=== PATIENT | male | born 1980 ===

== ENCOUNTER 2020-03-27 01:45 | Emergency (ER) | payer SELFPAY ==
[2020-03-27 01:53] VITALS: BP 112/70
== END 2020-03-27 05:47 ==
LOC: ED 01:45
DX: M54.9 Dorsalgia, unspecified (principal); Z53.21 Procedure and treatment not carried out due to patient leaving prior to being seen by health care provider

== ENCOUNTER 2021-06-20 19:53 | Observation (INO) | payer OTHER ==
[2021-06-20] MEDS ORDERED: NITROGLYCERIN 2% OINT 1 GM TP ONE (20:24)
[2021-06-20] MEDS ORDERED: ONDANSETRON 4 MG/2 ML INJ IV ONE (20:24)
[2021-06-20] MEDS ORDERED: LORazepam 1 MG TAB PO ONE (20:24)
[2021-06-20] MEDS ORDERED: MORPHINE 4 MG/1 ML INJ IV ONE (20:24)
[2021-06-20] MEDS: ASPIRIN 325 MG TAB PO ONE ×2 (20:34→20:45)
--- NOTE | 2021-06-20 20:34 | Emergency Department Report ---
HPI - General Chief Complaint: Chest Pain Time Seen by Provider: 06/20/21 20:15 - HPI HPI: Room 2 The patient is a 41-year-old male present with a chief complaint of chest pain. Patient states since yesterday he has had a constant sharp pain in his left chest. Patient denies shortness of breath, nausea/vomiting or diaphoresis with this pain. Patient gives his pain a score of 2/10. Patient states he had an ID at [facility] approximately 2 weeks ago which required 2 cardiac stents being placed. Patient does not remember the name of his medication but states he has been compliant with all meds prescribed after his ID. ED Past Medical Hx - Past Medical History Hx Hypertension: Yes Hx Heart Attack/AMI: Yes (May 2021. 2 cardiac stents. [facility]) Hx Psychiatric Treatment: Yes (Anxiety) - Surgical History Hx Coronary Stent: Yes (X2 (May 2021)) Additional Surgical History: RT ARM SURGERY 2010 - Family History Family history: no significant - Social History Smoking Status: Former Smoker (None x1 year) Substance Use Type: None (Denies illicit drug use) - Medications Home Medications: Home Medications Medication Instructions Recorded Confirmed Last Taken Type Diphenoxylate HCl/Atropine 2 each PO Q6HRT #14 tablet 02/27/14 Unknown Rx [Lomotil 2.5-0.025 mg Tablet] ED Review of Systems ROS: Stated complaint: CHEST PAIN Other details as noted in HPI Constitutional: denies: diaphoresis Eyes: denies: eye pain ENT: denies: throat pain Respiratory: denies: shortness of breath Cardiovascular: chest pain Endocrine: no symptoms reported Gastrointestinal: denies: nausea, vomiting Genitourinary: denies: dysuria Musculoskeletal: denies: back pain Neurological: denies: headache Physical Exam - Physical Exam Vital Signs: Vital Signs 06/20/21 20:07 Pulse Rate 93 H Blood Pressure 170/94 O2 Sat by Pulse 97 Oximetry Physical Exam: GENERAL: The patient is well-developed well-nourished male standing in room not appearing to be in acute distress. [] HEENT: Normocephalic. Atraumatic. Extraocular motions are intact. Patient has moist mucous membranes. NECK: Supple. Trachea midline CHEST/LUNGS: Clear to auscultation. There is no respiratory distress noted. HEART/CARDIOVASCULAR: Regular. There is no tachycardia. There is no gallop rub or murmur. ABDOMEN: Abdomen is soft, nontender. Patient has normal bowel sounds. There is no abdominal distention. SKIN: There is no rash. There is no edema. There is no diaphoresis. NEURO: The patient is awake, alert, and oriented. The patient is cooperative. The patient has no focal neurologic deficits. The patient has normal speech and gait. GCS 15 MUSCULOSKELETAL: There is no evidence of acute injury. ED Course Vital Signs 06/20/21 20:07 Pulse Rate 93 H Blood Pressure 170/94 O2 Sat by Pulse 97 Oximetry - Consultations Consultation #1: 06/20/21 21:23 Cardiology paged 06/20/21 21:27 Case discussed with electrophysiologist Dr. Sams- recommends patient be admitted for observation ED Medical Decision Making - Lab Data Result diagrams: 06/20/21 20:23 06/20/21 20:23 Laboratory Tests 06/20/21 06/20/21 06/20/21 20:23 20:23 20:25 WBC 10.3 RBC 5.28 H Hgb 16.0 H Hct 45.7 H MCV 87 MCH 30 MCHC 35 H RDW 14.4 Plt Count 207 Lymph % (Auto) 36.0 H Harmon % (Auto) 6.2 Eos % (Auto) 4.4 H Baso % (Auto) 0.4 Lymph # (Auto) 3.7 Harmon # (Auto) 0.6 Eos # (Auto) 0.5 H Baso # (Auto) 0.0 Seg Neutrophils % 53.0 Seg Neutrophils # 5.5 PT INR Sodium 141 Potassium 4.0 Chloride 104.0 Carbon Dioxide 21 L Anion Gap 20 BUN 16 Creatinine 1.2 Estimated GFR > 60 BUN/Creatinine Ratio 13 Glucose 100 Calcium 9.8 Total Bilirubin 0.30 AST 42 H ALT 40 Alkaline Phosphatase 67 Total Creatine Kinase 1059 H CK-MB (CK-2) 5.5 H CK-MB (CK-2) Rel Index 0.5 Troponin T < 0.010 Total Protein 7.8 Albumin 4.4 Albumin/Globulin Ratio 1.3 06/20/21 20:25 WBC RBC Hgb Hct MCV MCH MCHC RDW Plt Count Lymph % (Auto) Harmon % (Auto) Eos % (Auto) Baso % (Auto) Lymph # (Auto) Harmon # (Auto) Eos # (Auto) Baso # (Auto) Seg Neutrophils % Seg Neutrophils # PT 13.1 INR 0.90 Sodium Potassium Chloride Carbon Dioxide Anion Gap BUN Creatinine Estimated GFR BUN/Creatinine Ratio Glucose Calcium Total Bilirubin AST ALT Alkaline Phosphatase Total Creatine Kinase CK-MB (CK-2) CK-MB (CK-2) Rel Index Troponin T Total Protein Albumin Albumin/Globulin Ratio - EKG Data -: EKG Interpreted by Me EKG shows normal: sinus rhythm, axis Rate: normal (91 bpm) - EKG Data When compared to previous EKG there are: previous EKG unavailable Interpretation: nonspecific ST-T wave haliee (T wave inversion in lead III) - Radiology Data Radiology results: report reviewed (Chest x-ray), image reviewed (Chest x-ray) interpreted by me: Chest x-ray-no definite focal infiltrates, no pneumothorax [facility] [address] [place] [address] XRay Report Signed Patient: NICOLA BECKFORD MR#: [id number] : 1980 Acct:[id number] Age/Sex: 41 / M ADM Date: 06/20/21 Loc: ED Attending Dr: Ordering Physician: AMELIA LAMB MD Date of Service: 06/20/21 Procedure(s): XR chest routine 2V Accession Number(s): [id number] cc: AMELIA LAMB MD Fluoro Time In Minutes: CHEST 2 VIEWS INDICATION / CLINICAL INFORMATION: CHEST PAIN. COMPARISON: None available. FINDINGS: SUPPORT DEVICES: None. HEART / MEDIASTINUM: No significant abnormality. LUNGS / PLEURA: A calcified granuloma is seen along the right middle lobe. The lungs are otherwise clear. No significant pleural effusion. No pneumothorax. ADDITIONAL FINDINGS: No significant additional findings. IMPRESSION: 1. No acute abnormality of the chest. Signer Name: Lenin Olvera MD Signed: 06/20/2021 9:11 PM Workstation Name: [id number] Transcribed By: DRE Dictated By: Lenin Olvera MD Electronically Authenticated By: Lenin Olvera MD Signed Date/Time: 06/20/212110 DD/ 10 TD/TT: - Differential Diagnosis Anxiety, ACS, Tyra's syndrome Critical care attestation.: If time is entered above; I have spent that time in minutes in the direct care of this critically ill patient, excluding procedure time. ED Disposition Clinical Impression: Chest pain Disposition: 09 ADMITTED INPATIENT Is pt being admited?: Yes Does the pt Need Aspirin: Yes Condition: Fair Instructions: Nonspecific Chest Pain, Adult Time of Disposition: 21:31 (Hospitalist called (Dr. Louis)) Heart Score - HEART Score History: Moderately suspicious EKG: Non-specific Age: < 45 Risk factors: 1-2 risk factors Troponin: < normal limit HEART Score: 3 - EKG Read Time Time EKG Completed: 19:57 EKG Read Time: 20:01
[2021-06-20 20:44] LABS: Basophils % (Auto) 0.4 % (0.0-1.8); Eosinophils # (Auto) 0.5 K/mm3 (0.0-0.4); Eosinophils % (Auto) 4.4 % (0.0-4.3); Hematocrit 45.7 % (35.5-45.6); Lymphocytes # (Auto) 3.7 K/mm3 (1.2-5.4); Mean Corpuscular HGB Conc 35 % (32-34); Mean Corpuscular Volume 87 fl (84-94); Monocytes # (Auto) 0.6 K/mm3 (0.0-0.8); Monocytes % (Auto) 6.2 % (0.0-7.3); Platelet Count 207 K/mm3 (140-440); Red Blood Count 5.28 M/mm3 (3.65-5.03); Red Cell Distribution Width 14.4 % (13.2-15.2)
[2021-06-20 20:54] LABS: INR 0.9 (0.87-1.13)
[2021-06-20 21:04] LABS: Creatine Kinase MB 5.5 ng/mL (0.0-4.0)
[2021-06-20 21:06] LABS: Alanine Aminotransferase 40 units/L (7-56); Albumin 4.4 g/dL (3.9-5); BUN/Creatinine Ratio 13; Blood Urea Nitrogen 16 mg/dL (9-20); Calcium 9.8 mg/dL (8.4-10.2); Hemolysis Index 22
--- NOTE | 2021-06-20 21:16 | XRay Report ---
CHEST 2 VIEWS INDICATION / CLINICAL INFORMATION: CHEST PAIN. COMPARISON: None available. FINDINGS: SUPPORT DEVICES: None. HEART / MEDIASTINUM: No significant abnormality. LUNGS / PLEURA: A calcified granuloma is seen along the right middle lobe. The lungs are otherwise cl ear. No significant pleural effusion. No pneumothorax. ADDITIONAL FINDINGS: No significant additional findings. IMPRESSION: 1. No acute abnormality of the chest. Signer Name: Lenin Olvera MD Signed: 06/20/2021 9:11 PM Workstation Name: [id number]
[2021-06-20] MEDS ORDERED: ACETAMINOPHEN 325 MG TAB PO PRN (21:50)
[2021-06-20] MEDS ORDERED: traMADol 50 MG TAB PO PRN (21:50)
[2021-06-20] MEDS ORDERED: MORPHINE 2 MG/1 ML INJ IV PRN (21:50)
[2021-06-20] MEDS ORDERED: NITROGLYCERIN 0.4 MG TAB SUBL SL PRN (21:50)
--- NOTE | 2021-06-20 21:56 | History and Physical Report ---
History of Present Illness Date of examination: 06/20/21 Date of admission: 06/20/21 Chief complaint: Chest pain History of present illness: 41-year-old male with history of hypertension and CA status post to a stent was brought to the hospital because of chest pain. Patient complained of constant sharp chest pain 2/10 in his left chest. Patient denies shortness of breath, nausea/vomiting or diaphoresis with this pain. Patient states he had an CA at [facility] approximately 2 weeks ago which required 2 cardiac stents being placed. Patient does not remember the name of his medication but states he has been compliant with all meds prescribed after his CA. In the emergency room initial cardiac enzyme is negative. Subsequently Case discussed with cardiology who recommended to admit the patient and cardiology will see the patient in the morning Past History Past Medical History: acute CA, hypertension, other (Anxiety) Past Surgical History: PTCA, Other (RT ARM SURGERY 2010) Social history: other (Former tobacco abuser) Family history: no significant family history Medications and Allergies Allergies Allergy/AdvReac Type Severity Reaction Status Date / Time No Known Allergies Allergy Verified 02/27/14 04:22 Home Medications Medication Instructions Recorded Confirmed Last Taken Type Diphenoxylate HCl/Atropine 2 each PO Q6HRT #14 tablet 02/27/14 Unknown Rx [Lomotil 2.5-0.025 mg Tablet] Review of Systems Cardiovascular: chest pain, shortness of breath Exam - Constitutional Vitals: Temp Pulse Resp BP Pulse Ox 89 139/88 97 06/20/21 20:30 06/20/21 20:30 06/20/21 20:07 General appearance: Present: no acute distress, well-nourished - EENT Eyes: Present: PERRL ENT: hearing intact, clear oral mucosa - Neck Neck: Present: supple, normal ROM - Respiratory Respiratory effort: normal Respiratory: bilateral: diminished - Cardiovascular Heart Sounds: Present: S1 & S2. Absent: rub, click - Extremities Extremities: pulses symmetrical, No edema Peripheral Pulses: within normal limits - Abdominal General gastrointestinal: Present: soft, non-tender, non-distended, normal bowel sounds Male genitourinary: Present: normal - Integumentary Integumentary: Present: clear, warm, dry - Musculoskeletal Musculoskeletal: gait normal, strength equal bilaterally - Psychiatric Psychiatric: appropriate mood/affect, intact judgment & insight - Neurologic Neurologic: CNII-XII intact, moves all extremities HEART Score - HEART Score EKG: Non-specific Age: < 45 Risk factors: 1-2 risk factors Troponin: Troponin T < 0.010 ng/mL (0.00-0.029) 06/20/21 20: Troponin: < normal limit Results - Labs CBC & Chem 7: 06/20/21 20:23 06/20/21 20: Labs: Laboratory Last Values WBC 10.3 K/mm3 (4.5-11.0) 06/20/21 20: RBC 5.28 M/mm3 (3.65-5.03) H 06/20/21 20: Hgb 16.0 gm/dl (11.8-15.2) H 06/20/21 20: Hct 45.7 % (35.5-45.6) H 06/20/21 20: MCV 87 fl (84-94) 06/20/21 20: MCH 30 pg (28-32) 06/20/21 20: MCHC 35 % (32-34) H 06/20/21 20: RDW 14.4 % (13.2-15.2) 06/20/21 20: Plt Count 207 K/mm3 (140-440) 06/20/21 20: Lymph % (Auto) 36.0 % (13.4-35.0) H 06/20/21 20: Chambers % (Auto) 6.2 % (0.0-7.3) 06/20/21 20: Eos % (Auto) 4.4 % (0.0-4.3) H 06/20/21 20: Baso % (Auto) 0.4 % (0.0-1.8) 06/20/21 20: Lymph # (Auto) 3.7 K/mm3 (1.2-5.4) 06/20/21 20: Chambers # (Auto) 0.6 K/mm3 (0.0-0.8) 06/20/21 20: Eos # (Auto) 0.5 K/mm3 (0.0-0.4) H 06/20/21 20: Baso # (Auto) 0.0 K/mm3 (0.0-0.1) 06/20/21 20:23 Seg Neutrophils % 53.0 % (40.0-70.0) 06/20/21 20: Seg Neutrophils # 5.5 K/mm3 (1.8-7.7) 06/20/21 20:23 PT 13.1 Sec. (12.2-14.9) 06/20/21 20: INR 0.90 (0.87-1.13) 06/20/21 20: Sodium 141 mmol/L (137-145) 06/20/21 20:23 Potassium 4.0 mmol/L (3.6-5.0) 06/20/21 20: Chloride 104.0 mmol/L (98-107) 06/20/21 20: Carbon Dioxide 21 mmol/L (22-30) L 06/20/21 20:23 Anion Gap 20 mmol/L 06/20/21 20:23 BUN 16 mg/dL (9-20) 06/20/21 20: Creatinine 1.2 mg/dL (0.8-1.3) 06/20/21 20:23 Estimated GFR > 60 ml/min 06/20/21 20:23 BUN/Creatinine Ratio 13 % 06/20/21 20: Glucose 100 mg/dL (75-100) 06/20/21 20: Calcium 9.8 mg/dL (8.4-10.2) 06/20/21 20: Total Bilirubin 0.30 mg/dL (0.1-1.2) 06/20/21 20:23 AST 42 units/L (5-40) H 06/20/21 20:23 ALT 40 units/L (7-56) 06/20/21 20:23 Alkaline Phosphatase 67 units/L (35-129) 06/20/21 20:23 Total Creatine Kinase 1059 units/L (55-170) H 06/20/21 20:25 CK-MB (CK-2) 5.5 ng/mL (0.0-4.0) H 06/20/21 20: CK-MB (CK-2) Rel Index 0.5 (0-4) 06/20/21 20: Troponin T < 0.010 ng/mL (0.00-0.029) 03/09/22 20:23 Total Protein 7.8 g/dL (6.3-8.2) 06/20/21 20:23 Albumin 4.4 g/dL (3.9-5) 06/20/21 20:23 Albumin/Globulin Ratio 1.3 % 06/20/21 20:23 - Imaging and Cardiology Chest x-ray: report reviewed Assessment and Plan VTE prophylaxis?: Chemical Plan of care discussed with patient/family: Yes - Patient Problems (1) ACS (acute coronary syndrome) Status: Acute Plan to address problem: Admit the patient to the medical telemetry. Aspirin 325 mg p.o. daily. Lipitor 40 mg p.o. daily. Nitroglycerin as needed. Serial cardiac enzymes. Echoc ardiogram. Cardiology evaluation (2) AMI (acute myocardial infarction) Status: Acute Plan to address problem: Aspirin 325 mg p.o. daily. Lipitor 40 mg p.o. daily. Nitroglycerin as needed. Serial cardiac enzymes. Echocardiogram. Cardiology evaluation (3) Hypertension Status: Acute Plan to address problem: Hydralazine 10 mg IV every 6 hours as needed. We continue the home medication (4) Tobacco abuse Status: Acute Plan to address problem: We counseled the patient regarding quitting smoking. We will put the nicotine patch if needed (5) DVT prophylaxis Status: Acute Plan to address problem: Heparin 5000 units subcu every 12 hours for DVT prophylaxis. Protonix 40 mg p.o. daily for GI prophylaxis. Patient is a full code
[2021-06-20] MEDS ORDERED: SODIUM CHLORIDE 0.9% 1000 ML 1,000 ML IV SCH (22:00)
[2021-06-20] MEDS: HEPARIN 5,000 UNIT/1 ML VIAL SUB-Q SCH (23:22)
[2021-06-21] MEDS: HEPARIN 5,000 UNIT/1 ML VIAL SUB-Q SCH (09:19)
--- NOTE | 2021-06-21 09:46 | Progress Note ---
Assessment and Plan Assessment and plan: (1) ACS (acute coronary syndrome) Status: Acute Plan to address problem: Admit the patient to the medical telemetry. Aspirin 325 mg p.o. daily. Lipitor 40 mg p.o. daily. Nitroglycerin as needed. Serial cardiac enzymes. Echocardiogram. Cardiology evaluation (2) AMI (acute myocardial infarction) Status: Acute Plan to address problem: Aspirin 325 mg p.o. daily. Lipitor 40 mg p.o. daily. Nitroglycerin as needed. Serial cardiac enzymes. Echocardiogram. Cardiology evaluation (3) Hypertension Status: Acute Plan to address problem: Hydralazine 10 mg IV every 6 hours as needed. We continue the home medication (4) Tobacco abuse Status: Acute Plan to address problem: We counseled the patient regarding quitting smoking. We will put the nicotine patch if needed (5) DVT prophylaxis Status: Acute Plan to address problem: Heparin 5000 units subcu every 12 hours for DVT prophylaxis. Protonix 40 mg p.o. daily for GI prophylaxis. Patient is a full code Hospitalist Physical - Constitutional Vitals: Temp Pulse Resp BP Pulse Ox 98.4 F 111 H 13 166/105 97 06/21/21 07:45 06/21/21 07:51 06/21/21 07:51 06/21/21 07:51 06/21/21 07:51 General appearance: Present: no acute distress, well-nourished HEART Score - HEART Score EKG: Non-specific Age: < 45 Risk factors: 1-2 risk factors Troponin: Troponin T < 0.010 ng/mL (0.00-0.029) 06/21/21 04:23 Troponin: < normal limit Results - Labs CBC & Chem 7: 06/20/21 20:23 06/20/21 20:23 Labs: Laboratory Last Values WBC 10.3 K/mm3 (4.5-11.0) 06/20/21 20:23 RBC 5.28 M/mm3 (3.65-5.03) H 06/20/21 20:23 Hgb 16.0 gm/dl (11.8-15.2) H 06/20/21 20:23 Hct 45.7 % (35.5-45.6) H 06/20/21 20:23 MCV 87 fl (84-94) 06/20/21 20:23 MCH 30 pg (28-32) 06/20/21 20: MCHC 35 % (32-34) H 06/20/21 20:23 RDW 14.4 % (13.2-15.2) 06/20/21 20: Plt Count 207 K/mm3 (140-440) 06/20/21 20:23 Lymph % (Auto) 36.0 % (13.4-35.0) H 06/20/21 20:23 Shoshone % (Auto) 6.2 % (0.0-7.3) 06/20/21 20: Eos % (Auto) 4.4 % (0.0-4.3) H 06/20/21 20: Baso % (Auto) 0.4 % (0.0-1.8) 06/20/21 20: Lymph # (Auto) 3.7 K/mm3 (1.2-5.4) 06/20/21 20: Shoshone # (Auto) 0.6 K/mm3 (0.0-0.8) 06/20/21 20: Eos # (Auto) 0.5 K/mm3 (0.0-0.4) H 06/20/21 20: Baso # (Auto) 0.0 K/mm3 (0.0-0.1) 06/20/21 20: Seg Neutrophils % 53.0 % (40.0-70.0) 06/20/21: Seg Neutrophils # 5.5 K/mm3 (1.8-7.7) 06/20/21 20: PT 13.1 Sec. (12.2-14.9) 06/20/21 20: INR 0.90 (0.87-1.13) 06/20/21 20: Sodium 141 mmol/L (137-145) 06/20/21 20:23 Potassium 4.0 mmol/L (3.6-5.0) 06/20/21 20: Chloride 104.0 mmol/L (98-107) 06/20/21 20:23 Carbon Dioxide 21 mmol/L (22-30) L 06/20/21 20:23 Anion Gap 20 mmol/L 06/20/21 20:23 BUN 16 mg/dL (9-20) 06/20/21 20:23 Creatinine 1.2 mg/dL (0.8-1.3) 06/20/21 20:23 Estimated GFR > 60 ml/min 06/20/21 20:23 BUN/Creatinine Ratio 13 % 06/20/21 20:23 Glucose 100 mg/dL (75-100) 06/20/21 20:23 Calcium 9.8 mg/dL (8.4-10.2) 06/20/21 20:23 Total Bilirubin 0.30 mg/dL (0.1-1.2) 06/20/21 20:23 AST 42 units/L (5-40) H 06/20/21 20:23 ALT 40 units/L (7-56) 06/20/21 20:23 Alkaline Phosphatase 67 units/L (35-129) 06/20/21 20:23 Total Creatine Kinase 1059 units/L (55-170) H 06/20/21 20:25 CK-MB (CK-2) 5.5 ng/mL (0.0-4.0) H 06/20/21 20:25 CK-MB (CK-2) Rel Index 0.5 (0-4) 06/20/21 20:25 Troponin T < 0.010 ng/mL (0.00-0.029) 06/21/21 04:23 Total Protein 7.8 g/dL (6.3-8.2) 06/20/21 20:23 Albumin 4.4 g/dL (3.9-5) 06/20/21 20:23 Albumin/Globulin Ratio 1.3 % 06/20/21 20:23 Active Medications - Current Medications Current Medications: Generic Name Dose Route Start Last Admin Trade Name Freq PRN Reason Stop Dose Admin Acetaminophen 650 mg 06/20/21 21:50 06/21/21 03:52 Acetaminophen 325 Mg Tab PO 650 mg Q6H PRN Administration Pain, Mild (1-3) Aspirin 325 mg 06/21/21 10:00 06/21/21 09:19 Aspirin Ec 325 Mg Tab PO 325 mg QDAY ANGELA Administration Atorvastatin Calcium 40 mg 06/20/21 22:00 06/20/21 23:22 Atorvastatin 40 Mg Tab PO 40 mg QHS ANGELA Administration Heparin Sodium (Porcine) 5,000 unit 06/20/21 22:00 06/21/21 09:19 Heparin 5,000 Unit/1 Ml Vial SUB-Q 5,000 unit Q12HR ANGELA Administration Sodium Chloride 1,000 mls @ 100 mls/hr 06/20/21 22:00 06/20/21 23:23 Nacl 0.9% 1000 Ml IV 100 mls/hr DIRECT ANGELA Administration Morphine Sulfate 2 mg 06/20/21 21:50 Morphine 2 Mg/1 Ml Inj IV Q5MIN PRN Chest Pain unrelieved by NTG Nitroglycerin 0.4 mg 06/20/21 21:50 Nitroglycerin 0.4 Mg Tab Subl SL Q5M PRN Chest Pain Pantoprazole Sodium 40 mg 06/21/21 10:00 06/21/21 09:19 Pantoprazole 40 Mg Tab PO 40 mg QDAY ANGELA Administration Sodium Chloride 10 ml 06/20/21 21:50 Sodium Chloride 0.9% 10 Ml Flush Syringe IV PRN PRN LINE FLUSH Tramadol HCl 50 mg 06/20/21 21:50 Tramadol 50 Mg Tab PO Q6H PRN Pain, Moderate (4-6)
[2021-06-21] MEDS ORDERED: ASPIRIN EC 325 MG TAB PO SCH (10:00)
[2021-06-21] MEDS ORDERED: PANTOPRAZOLE 40 MG TAB PO SCH (10:00)
[2021-06-21] MEDS ORDERED: carvediloL 12.5 MG TAB PO SCH (11:00)
[2021-06-21 11:28] VITALS: BP 124/64
--- NOTE | 2021-06-21 15:56 | Discharge Summary ---
Providers - Providers Date of Admission: 06/20/21 21:50 Date of discharge: 06/21/21 Attending physician: JACQUELIN PRIETO 06/20/21 Consult to Cardiac Rehabilitation [CONS] Routine Reason For Exam: Phase I 06/20/21 21:32 Consult to Physician [CONS] Urgent Comment: Dr. Lott spoke with Dr. Rubin spoke @ [id number] Consulting Provider: KENRICK RUBIN Physician Instructions: Reason For Exam: Chest pain Primary care physician: SCARF GLUER Hospitalization Reason for admission: Atypical chest pain Condition: Fair Pertinent studies: Chest x-ray, no acute abnormality noted Hospital course: 41-year-old male with history of hypertension and AZ status post to a stent was brought to the hospital because of chest pain. Patient complained of constant sharp chest pain 2/10 in his left chest. Patient denies shortness of breath, nausea/vomiting or diaphoresis with this pain. Patient states he had an AZ at [facility] approximately 2 weeks ago which required 2 cardiac stents being placed. Patient claims compliance with his medications. Initial work-up in the emergency room is negative cardiac enzymes x2 and nonspecific EKG findings Patient was admitted appropriately managed home medications resumed,, evaluated by cardiology Dr. Richter from [facility], as patient's symptoms significantly improved and as cardiac enzymes x2 sets are negative, Dr. Richter advised to discharge the patient on his cardiac medications along with sublingual nitroglycerin, and he informed me that he would set up tomorrow morning to see him in the office for further evaluation and management. Today patient feels comfortable no new complaints Vital signs stable Physical examination prior to discharge is unremarkable Stable at discharge Follow-up with Dr. Richter at [facility] office tomorrow 06/22/2021 Discharge diagnosis; Atypical chest pain; Cardiac enzymes x2 -, symptoms resolved History of coronary artery disease status post PCI 8 weeks ago Continue current cardiac medications Hypertension; moderate control GERD; Protonix Ongoing tobacco abuse; smoking cessation counseling done Advised nicotine patch as needed Obesity; BMI 44.5 Advised diet modification, exercise as tolerated and weight reduction When medically stable Cleared by certified welding inspector Dr. Richter for discharge and follow-up with their office tomorrow Hemodynamically and clinically stable at discharge Disposition: 01 HOME / SELF CARE / HOMELESS Final Discharge Diagnosis (Prints w/discharge instructions): Atypical chest pain. Coronary artery disease s/p PCI x2. Hypertension. Ongoing tobacco use. Morbid obesity. Dyslipidemia Time spent for discharge: 35 minutes Core Measure Documentation - Palliative Care Palliative Care/ Comfort Measures: Not Applicable - Core Measures Any of the following diagnoses?: none Exam - Constitutional Vitals: Temp Pulse Resp BP Pulse Ox 97.6 F 75 16 124/64 95 06/21/21 10:59 06/21/21 10:59 06/21/21 10:59 06/21/21 10:59 06/21/21 10:59 General appearance: Present: no acute distress, well-nourished - EENT Eyes: Present: PERRL, EOM intact - Neck Neck: Present: supple, normal ROM - Respiratory Respiratory effort: normal Respiratory: bilateral: diminished, negative: rales, rhonchi, wheezing - Cardiovascular Rhythm: regular Heart Sounds: Present: S1 & S2 - Extremities Extremities: no ischemia, No edema - Abdominal General gastrointestinal: Present: soft, non-tender, non-distended, normal bowel sounds - Integumentary Integumentary: Present: clear, warm - Musculoskeletal Musculoskeletal: strength equal bilaterally, generalized weakness - Psychiatric Psychiatric: appropriate mood/affect, agitated - Neurologic Neurologic: moves all extremities Plan Activity: advance as tolerated Diet: other (Cardiac diet) Additional Instructions: If you have worsening symptoms contact MD or go to the nearest emergency room as needed. [facility] Strongly advised to comply with medications diet and follow-up visits. Advised smoking cessation nicotine patch as needed Follow up with: PRIMARY CARE, [Primary Care Provider] - 7 Days TOOTIE RICHTER MD [Staff Physician] - 06/21/21 8:00 am Prescriptions: Nitroglycerin [Nitrostat] 0.4 mg SL Q5M PRN #20 tablet PRN Reason: Chest Pain Pantoprazole [Protonix TAB] 40 mg PO QDAY #20 tablet traMADoL [Ultram 50 MG tab] 50 mg PO Q6H PRN #12 tablet PRN Reason: Pain, Moderate (4-6)
--- NOTE | 2021-06-21 22:27 | Consultation ---
DATE OF CONSULTATION: 06/21/2021 HISTORY OF PRESENT ILLNESS: The patient is a 41-year-old male who was admitted with left anterior chest pain. There was a constant left chest pain that had a positional component. There was no shortness of breath, coughing, wheezing, sputum production, fever, chills, nausea or vomiting. There was no diaphoresis. There was no tenderness. It was unlike his previous coronary pain. He had a heart attack and a stent placed 2 weeks ago, and at that time, he had lower neck discomfort without chest pain. He has been feeling well since stent placement. He has been doing mild activities at home, but he has been very anxious and he got very anxious when he started to have this unexplained chest discomfort. He has had no problems with his legs, no palpitations, no dizziness, no history of blood clots. The pain has resolved now. PAST HISTORY, FAMILY HISTORY: Unremarkable. SOCIAL HISTORY: Smoking is a prior smoker, stopped 1 year ago. Alcohol: No heavy use. MEDICATIONS: See the nurse's list. He is compliant with his medications. ALLERGIES: He did not describe any allergies. PAST SURGICAL HISTORY: He did not describe any operations other than right arm surgery 11 years ago. REVIEW OF SYSTEMS: He has high cholesterol. His primary care doctor has given a medicine for anxiety. He did not give any clear history of neurologic disorders, sleep apnea, pulmonary disorders or spine disorders. PHYSICAL EXAMINATION: GENERAL: Well-developed, moderately overweight, no acute distress. Alert, oriented, cooperative. Mental status normal. EYES, NOSE AND THROAT: Unremarkable. NECK: Reveals no JVD or bruits. Neck is Supple, no masses. LUNGS: Clear. No labored respirations. HEART: Regular rhythm. Soft S4. No murmurs or rubs. ABDOMEN: Soft, nontender, no masses. EXTREMITIES: No cyanosis, clubbing or edema. Peripheral pulses are intact. NEUROLOGIC: Symmetrical. SKIN: Clear. LABORATORY DATA: EKG, nonspecific ST-T changes. Troponins, 3 troponin levels are normal. ASSESSMENT AND PLAN: 1. History of coronary artery disease with chest pain that has quality suggestive of musculoskeletal etiology. It is resolved. There are no acute electrocardiographic changes and no troponin elevations. This is unlike his previous coronary pain. This appears to be chest wall pain and I feel he can be discharged with office followup tomorrow. He should carry sublingual nitroglycerin and be compliant with all his medications. He may need long-term therapy for anxiety. 2. Hypertension: Fair control. 3. Hyperlipidemia, on therapy. 4. Mild obesity. 5. Chronic anxiety. 6. Mild elevation of the hematocrit: Consider workup on an outpatient basis. Consider lab error. 7. Left ventricular hypertrophy and normal left ventricular function by echocardiography. Thank you for this consultation. We will follow the patient in the office tomorrow. TID: [id number] RECEIPT: [id number] ANGELES/SANDRA
--- NOTE | 2021-06-22 09:13 | Electrocardiograph Report ---
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
--- NOTE | 2021-06-22 09:16 | Electrocardiograph Report ---
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
--- NOTE | 2021-06-22 09:18 | Electrocardiograph Report ---
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
[2021-06-22] MEDS ORDERED: TICAGRELOR 90 MG TAB PO SCH (10:00)
== END 2021-06-21 17:39 | disposition home or self-care (01) ==
LOC: ED 19:53 → 4A 21:50 → INTOOBSV 21:50
PROVIDERS: ADMIT Hospitalist; ATTEND Internal Medicine
DX: I24.9 Acute ischemic heart disease, unspecified (principal); I21.9 Acute myocardial infarction, unspecified; I10 Essential (primary) hypertension; I25.10 Atherosclerotic heart disease of native coronary artery without angina pectoris; R07.89 Other chest pain; E78.5 Hyperlipidemia, unspecified; E66.9 Obesity, unspecified; K21.9 Gastro-esophageal reflux disease without esophagitis; F17.200 Nicotine dependence, unspecified, uncomplicated; F41.9 Anxiety disorder, unspecified; Z79.899 Other long term (current) drug therapy; Z98.890 Other specified postprocedural states; Z68.41 Body mass index [BMI] 40.0-44.9, adult
CPT/HCPCS: 36415; 71046; 80053; 82550; 82553; 84484; 85025; 85610; 93005; 96361; 96372; 96374; 96375; 99285; C8929; G0378; J1644; J2270; J2405; J7030; 93306; Q0162

== ENCOUNTER 2021-07-10 15:13 | Emergency (ER) | payer OTHER | END 2021-07-10 15:15 | disposition left against medical advice (07) | LOC: ED 15:13 | DX: M79.602 Pain in left arm (principal); Z53.21 Procedure and treatment not carried out due to patient leaving prior to being seen by health care provider ==

== ENCOUNTER 2021-07-11 18:15 | Emergency (ER) | payer OTHER ==
[2021-07-11 18:25] VITALS: BP 186/99
== END 2021-07-11 20:13 | disposition left against medical advice (07) ==
LOC: ED 18:15
DX: R07.9 Chest pain, unspecified (principal); Z53.21 Procedure and treatment not carried out due to patient leaving prior to being seen by health care provider

== ENCOUNTER 2021-12-18 21:07 | Emergency (ER) | payer SELFPAY ==
[2021-12-18 21:22] VITALS: BP 138/81
[2021-12-18 22:40] LABS: Basophils % (Auto) 0.2 % (0.0-1.8); Eosinophils # (Auto) 0.3 K/mm3 (0.0-0.4); Eosinophils % (Auto) 3.3 % (0.0-4.3); Hematocrit 46.5 % (35.5-45.6); Hemoglobin 16.1 gm/dl (11.8-15.2); Lymphocytes # (Auto) 2.4 K/mm3 (1.2-5.4); Lymphocytes % (Auto) 23.2 % (13.4-35.0); Mean Corpuscular HGB Conc 35 % (32-34); Mean Corpuscular Volume 87 fl (84-94); Monocytes # (Auto) 0.7 K/mm3 (0.0-0.8); Monocytes % (Auto) 6.7 % (0.0-7.3); Platelet Count 208 K/mm3 (140-440); Red Blood Count 5.33 M/mm3 (3.65-5.03); Red Cell Distribution Width 14.3 % (13.2-15.2)
--- NOTE | 2021-12-18 22:49 | XRay Report ---
CHEST 2 VIEWS INDICATION / CLINICAL INFORMATION: Chest Pain STUDY TIME: 2209 COMPARISON: 07/11/2021 FINDINGS: SUPPORT DEVICES: None. HEART / MEDIASTINUM: No significant abnormality. LUNGS / PLEURA: Calcified granulomas again seen on the right. Lung foster are clear of infiltrates an d effusions. No pneumothorax. ADDITIONAL FINDINGS: No significant additional findings. Signer Name: Gregory Weiss MD Signed: 12/18/2021 10:45 PM Workstation Name: [id number]
[2021-12-18 23:01] LABS: Alanine Aminotransferase 25 units/L (7-56); Albumin 4.5 g/dL (3.9-5); BUN/Creatinine Ratio 18; Blood Urea Nitrogen 16 mg/dL (9-20); Calcium 9.3 mg/dL (8.4-10.2); Hemolysis Index 8
--- NOTE | 2021-12-20 10:29 | Electrocardiograph Report ---
[facility] Test Date: 2021-12-18 Test Time: 21:35:12 Pat Name: NICOLA SALAZAR Department: Room: Gender: M Win[employer] C[employer] Hand: TECH : 1980 Requested By: SWEETIE SHI Order Number: [id number] Reading MD: Jason Hussein Measurements Intervals [place] Rate: 89 P: 31 [place]: 179 QRS: -63 QRSD: 94 T: 41 QT: 361 QTc: 440 Interpretive Statements Sinus rhythm Left axis deviation ST elev, probable normal early repol pattern Compared to ECG 10/01/2021 22:49:35 Left-axis deviation now present ST (T wave) deviation now present Right superior axis no longer present Electronically Signed On 12-20-2021 10:29:11 EDT by Jason Hussein
== END 2021-12-19 00:50 | disposition left against medical advice (07) ==
LOC: ED 21:07
DX: R07.9 Chest pain, unspecified (principal); Z53.21 Procedure and treatment not carried out due to patient leaving prior to being seen by health care provider
CPT/HCPCS: 36415; 71046; 80048; 80053; 84484; 85025; 93005